=== PATIENT | male | born 2005 | race Caucasian/White ===

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

== ENCOUNTER 2024-07-21 20:03 | Emergency (ER) | payer OTHER, SELFPAY ==
[2024-07-21 20:15] VITALS: BP 136/86; PULSE 57; RESP 16; TEMP 36.6; O2SAT 100
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
[2024-07-21 21:43] VITALS: BP 132/78; PULSE 78; O2SAT 98
[2024-07-21 22:33] VITALS: BP 139/76; PULSE 64; O2SAT 98
== END 2024-07-21 22:34 | disposition home or self-care (01) ==
PROVIDERS: Emergency Provider Emergency Medicine; PCP Electrodiagnostic Medicine
DX: M79.18 Myalgia, other site (principal); V89.2XXA Person injured in unspecified motor-vehicle accident, traffic, initial encounter
CPT/HCPCS: 71045; 72070; 99284

== ENCOUNTER 2024-08-08 14:28 | Emergency (ER) | payer OTHER, SELFPAY ==
[2024-08-08 14:38] VITALS: BP 134/75; PULSE 80; RESP 17; TEMP 36.7; O2SAT 99; BMI 17.7
--- NOTE | 2024-08-08 14:54 | XRR_ITS ---
PROCEDURE INFORMATION: Exam: XR Right Shoulder Exam date and time: 08/08/2024 3:03 PM Age: 18 years old Clinical indication: Right; Patient HX: RT shoulder pain post fall TECHNIQUE: Imaging protocol: Radiologic exam of the right shoulder. Views: 2 or more views. COMPARISON: CR (CHEST, ) 07/21/2024 9:21 PM FINDINGS: Bones/joints: Normal. Soft tissues: Normal. XR/XR shoulder RT min 2V* [id number] IMPRESSION: No acute findings.
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
[2024-08-08 15:52] VITALS: BP 131/78; PULSE 76; RESP 16; O2SAT 98
== END 2024-08-08 15:51 | disposition home or self-care (01) ==
PROVIDERS: Emergency Provider Nurse Practitioner Family
DX: S16.1XXA Strain of muscle, fascia and tendon at neck level, initial encounter (principal); V59.50XA Passenger in pick-up truck or van injured in collision with unspecified motor vehicles in traffic accident, initial encounter
CPT/HCPCS: 73030; 99283

== ENCOUNTER 2025-06-24 17:16 | Emergency (ER) | payer SELFPAY ==
[2025-06-24 17:26] VITALS: BP 142/83; PULSE 109; RESP 17; TEMP 36.9; O2SAT 95; BMI 16.9
--- NOTE | 2025-06-24 17:43 | W.ED.SKABFB ---
HPI - Skin/Abscess/Foreign Bdy General: Chief complaint: Skin/Abscess/Foreign Body Stated complaint: L side of neck swollen Time Seen by Provider: 06/24/25 17:17 Source: patient Mode of arrival: ambulatory Limitations: no limitations History of Present Illness: Patient is a 19-year-old male here for evaluation following a bee sting to the left side of his neck that he sustained just prior to arrival. Patient states he has had bee/wasp stings before that resulted in localized edema and he is concerned due to the location on his neck and thinks his neck is going to swell shut . Patient did not take any medications prior to coming to the emergency department. He is not complaining of lip or tongue swelling or difficulty swallowing. He has no shortness of breath or difficulty breathing. MD complaint: insect bite/sting Onset (ago): hour(s) Tetanus up to date: yes Location: neck Severity: mild Relieving factors: none Exacerbating factors: none Context: other (witnessed bee sting) Associated symptoms: Reports no associated symptoms; Deny nausea or vomiting Treatments prior to arrival: none Related Data Previous Rx's ?Medication ?Instructions ?Recorded sulfamethoxazole 800 1 tab PO BID #60 tabs 05/13/22 mg-trimethoprim 160 mg tablet cyclobenzaprine 5 mg tablet 5 mg PO BID PRN muscle spasm #20 08/08/24 tabs naproxen 500 mg tablet 500 mg PO BID #20 tabs 08/08/24 Allergies Allergy/AdvReac Type Severity Reaction Status Date / Time No Known Allergies Allergy Verified 07/21/24 20:18 Review of Systems ENMT: Denies: throat pain, uvular edema, enlarged tonsils or odynophagia Card: Denies: chest pain, palpitations or lightheadedness Resp: Denies: dyspnea GI: Denies: abdominal pain, nausea, vomiting, dysphagia or diarrhea Musc: Denies: neck pain Skin/Breast: Reports: other (bee sting to neck) Neuro: Denies: headache(s), numbness in extremities, weakness in extremities, sensory changes or dizziness [facility] ED PFSH: Medical History Weak urine stream Family History Father Healthy adult Mother Healthy adult Social History (Reviewed 06/24/25 @ 18:01 by CIELO Lai Smoking and tobacco/nicotine status: never used tobacco/nicotine Alcohol intake: never Substance/Drug Use: never Adopted: Yes Highest education level completed: 11th Grade Current occupational status: student Physical Exam Const: COMMON NORMALS: no acute distress, average body habitus, patient oriented x3, no limitations, healthy appearing, alert and well nourished GENERAL APPEARANCE: cooperative and anxious ORIENTATION/CONSCIOUSNESS: Yes awake, Yes oriented to person, Yes oriented to place and Yes oriented to time HENMT: COMMON NORMALS: normocephalic and atraumatic HEAD & SCALP: normal to inspection, normocephalic and atraumatic FACE & SINUS: normal facial exam; no edema MOUTH: Normal oral and palatal mucosa present, lip normal, tongue normal and Normal salivary glands and ducts present THROAT: posterior oropharynx normal and tonsils normal; no uvular edema Neck/C-Spine: GENERAL: Yes normal visual inspection, No anterior neck swelling and No submandibular swelling NECK IMAGES:  1. small wheel on side of neck consistent with sting; no localized edema at this time Resp: COMMON NORMALS: normal respiratory effort and clear to auscultation bilaterally AUSCULTATION: clear to auscultation bilaterally Cardio: COMMON NORMALS: regular rate and regular rhythm RATE: regular rate RHYTHM: regular rhythm GI: COMMON NORMALS: non-tender Neuro: SHELL COMA SCALE: document GCS findings [place] coma scale eye opening: Spontaneous [place] coma scale verbal response: Orientated Shell coma scale motor response: Obey commands [place] coma scale total score: 15 COMMON NORMALS: patient oriented x3, CN's II-XII intact bilaterally, moves all extremities, no focal motor deficits, no sensory deficits noted and gait normal SENSORIUM/ORIENTATION: Yes alert, Yes oriented to person, Yes oriented to place and Yes oriented to time Skin: COMMON NORMALS: no rashes or lesions noted GENERAL SKIN EXAM: no rashes or lesions noted Course Vital Signs: Vital signs: Vital Signs Temperature 98.5 F 06/24/25 17:26 Pulse Rate 109 H 06/24/25 17:26 Respiratory Rate 17 06/24/25 17:26 Blood Pressure 142/83 06/24/25 17:26 Pulse Oximetry 95 06/24/25 17:26 Oxygen Delivery Me thod Room Air 06/24/25 17:26 MDM - Skin/Abscess/Foreign Bdy Medicial Decision Making Patient has been watched approximately 1.5 hours and has not had any progression of symptoms. He is not having any localized swelling. No signs or symptoms consistent with angioedema or anaphylactic reaction. He was given IM Benadryl and Solu-Medrol while here. Patient will be allowed discharge with return precautions. Medical Records I reviewed the patient's medical records. No radiology studies performed this visit Discharge Plan Discharge Patient Disposition: Home Clinical Impression: Accidental bee sting Condition: Stable Prescriptions: No Action sulfamethoxazole-trimethoprim 800-160 mg tablet 1 tab PO BID Qty: 60 6RF naproxen 500 mg tablet 500 mg PO BID Qty: 20 0RF cyclobenzaprine 5 mg tablet 5 mg PO BID PRN (Reason: muscle spasm) Qty: 20 0RF Discharge Orders: Discharge ED (Routine); Ordered 06/24/25 Ordered By: Hannah Lopez Patient Instructions: Patient Portal & Toe Instructions Activity Restrictions/Additional Instructions: As we discussed, you may apply ice to the area for 15 to 20 minutes every other hour to help with swelling. You may apply topical hydrocortisone cream to help with any itching. You may return to the emergency department for onset of shortness of breath or difficulty breathing or swallowing, significant neck swelling, or any other concerns you may have. Print Language: Tristanian Coding Level of Care Code ED Marine Consultant for Alka Chairez
[2025-06-24] MEDS: methylPREDNISolone sod succ 125 mg/2 mL INJ 80 MG IM (18:25)
[2025-06-24] MEDS: diphenhydrAMINE 50 mg/mL SDV 1mL IM (18:25)
[2025-06-24 18:48] VITALS: PULSE 88; O2SAT 99
== END 2025-06-24 18:49 | disposition home or self-care (01) ==
PROVIDERS: Emergency Provider Physician Assistant
DX: T63.441A Toxic effect of venom of bees, accidental (unintentional), initial encounter (principal); X58.XXXA Exposure to other specified factors, initial encounter; R60.0 Localized edema
CPT/HCPCS: 96372; 99284; J1200; J2919